=== PATIENT | female | born 1990 | race Caucasian/White ===

== ENCOUNTER 2022-02-24 05:59 | Emergency (ER) | payer OTHER ==
[~2022-02-24] VITALS: Ht 157.5 cm; Wt 52.3 kg
[2022-02-24 06:04] VITALS: BP 154/97
--- NOTE | 2022-02-24 06:09 | NUR ---
Patient taken to bed 6.
--- NOTE | 2022-02-24 06:11 | NUR ---
Dr. Bonilla examining patient.
[2022-02-24] MEDS ORDERED: ONDANSETRON 4 MG/2 ML VIAL IVP ONE (06:25)
[2022-02-24] MEDS ORDERED: FAMOTIDINE 20 MG/2 ML VIAL IVP ONE (06:25)
[2022-02-24] MEDS ORDERED: NACL 0.9% 1,000 ML IV ONE (06:25)
[2022-02-24] MEDS ORDERED: FAMOTIDINE 20 MG TAB PO ONE (06:45)
[2022-02-24] MEDS ORDERED: ALUMINUM HYD/MAG/SIMETHICONE 30 ML UDC PO ONE (06:45)
[2022-02-24] MEDS ORDERED: ACETAMINOPHEN 325 MG TAB PO ONE (06:45)
[2022-02-24] MEDS ORDERED: ONDANSETRON 4 MG ODT PO ONE (06:45)
--- NOTE | 2022-02-24 07:13 | NUR ---
Pt report given to ROSS. Transfer of care at this time.
[2022-02-24 07:33] LABS: ALBUMIN 3.1 g/dL (3.4-5.0); ANION GAP 12.6 (8-16); CARBON DIOXIDE 25.9 mmol/L (21-32); TOTAL BILIRUBIN 0.5 mg/dL (0.0-1.0)
[2022-02-24 07:35] LABS: POTASSIUM 2.5 mmol/L (3.5-5.1)
[2022-02-24 07:37] LABS: BASOPHILS # (AUTO) 0.1 K/uL (0.00-0.22); EOSINOPHILS # (AUTO) 0.3 K/uL (0-0.4); EOSINOPHILS % (AUTO) 3.8 % (0.0-4.0); HEMATOCRIT 36.8 % (36-48); HEMOGLOBIN 12.9 g/dL (12.0-16.0); LYMPHOCYTES # (AUTO) 3.6 K/uL (2.5-16.5); LYMPHOCYTES % (AUTO) 43.5 % (20.5-51.1); MEAN CORPUSCULAR HEMOGLOBIN 33 pg (27-31); MEAN CORPUSCULAR HGB CONC 35 g/dL (33-37); MEAN CORPUSCULAR VOLUME 94.4 fL (80-94); MONOCYTES # (AUTO) 0.5 K/uL (0.8-1.0); MONOCYTES % (AUTO) 6.1 % (1.7-9.3); NEUTROPHILS # (AUTO) 3.7 K/uL (1.8-7.7); NEUTROPHILS % (AUTO) 45.6 % (42.2-75.2); PLATELET COUNT (AUTO) 216 K/uL (140-450); RED CELL DISTRIBUTION WIDTH 12.7 % (11.6-13.7); WHITE BLOOD COUNT (AUTO) 8.2 K/uL (4.8-10.8)
[2022-02-24] MEDS ORDERED: POTASSIUM CHLORIDE 20% 40 MEQ/15 ML UDC PO ONE (07:45)
[2022-02-24] MEDS ORDERED: MAGNESIUM OXIDE 400 MG TAB PO ONE (07:45)
[2022-02-24] MEDS ORDERED: POTA10TA70 PO (08:43)
[2022-02-24] MEDS ORDERED: ONDA-188 PO (08:43)
[2022-02-24] MEDS ORDERED: SLOMAG PO (08:43)
[2022-02-24] MEDS ORDERED: ATRO1TAB PO (08:43)
[2022-02-24 09:04] VITALS: BP 114/78
--- NOTE | 2022-02-24 09:06 | NUR ---
Patient discharged with v/s stable. Written and verbal after care instructions given and explained. Patient alert, oriented and verbalized understanding of instructions. Ambulatory with steady gait. All questions addressed prior to discharge. ID band removed. Patient advised to follow up with PMD. Rx of DIPHENOXYLATE HCI/ATROPINE, ONDANSETRON, POTASSIUM CHLORIDE, CALCIUM/CHLORIDE/MAGNESIUM given. Opportunity to ask questions provided and answered.
--- NOTE | 2022-02-24 09:40 | NUR ---
The patient's care was reviewed and supervised by Chelsey Munoz RN.
== END 2022-02-24 09:06 | disposition home or self-care (01) ==
LOC: MED 05:59
DX: R07.9 Chest pain, unspecified (principal); R10.9 Unspecified abdominal pain; E87.6 Hypokalemia; R11.2 Nausea with vomiting, unspecified; F41.9 Anxiety disorder, unspecified
CPT/HCPCS: 36415; 71045; 80053; 81002; 81025; 83690; 84484; 85025; 93005; 99285; Q0092; Q0162; J2405; J3490; J7030